=== PATIENT | male | born 1960 | race Caucasian/White ===

== ENCOUNTER 2020-09-03 07:28 | Emergency (ER) | payer OTHER ==
--- NOTE | 2020-09-03 07:34 | ED Physician Documentation ---
PD HPI HEENT - Stated complaint Stated Complaint: LT EAR PX - History obtained from History obtained from: Patient - History of Present Illness Timing - onset: How many weeks ago (2) Timing - duration: Weeks (2) Timing - details: Gradual onset, Still present (has had decreased hearing and pain left ear for 2 weeks. Seen in video by his son, who [facility]. Rx with Cefdinir and oral steroids and Debrox drops. No improvement and so Ciprodex otic drops added the past 4 days. Still not improved, so son directed him to come to ER (since no PMD) Location: Left ear Associated symptoms: No: Fever, Swollen nodes, Facial swelling, Headache Similar symptoms before: Has not had sx before Recently seen: Other (Telemedicine with his son who is MD out of state.) Review of Systems Constitutional: denies: Fever, Chills Ears: reports: Loss of hearing, Ear pain. denies: Drainage/discharge, Tinnitus/ringing Nose: denies: Congestion, Sinus pressure / pain Throat: denies: Sore throat GI: denies: Nausea, Vomiting Neurologic: denies: Altered mental status, Headache PD PAST MEDICAL HISTORY - Past Medical History Cardiovascular: None Respiratory: None Neuro: None - Past Surgical History Past Surgical History: Yes General: Bowel surgery - Present Medications Home Medications: Ambulatory Orders Medication Instructions Recorded Confirmed Cyclobenzaprine [Flexeril] 10 mg PO TID PRN #20 tablet 07/15/13 HYDROcod/ACETAM 5/325 [[place] 5/325] 1 - 2 ea PO Q6H #15 tablet 07/15/13 Hydrocodone/Acetaminophen 1 each PO Q6H PRN #12 tablet 09/03/20 [Hydrocodone-Acetamin 5-325 mg] Neomycin/Polymyx/Hc Otic Drops 4 drops LEFTEAR TID 7 Days #1 09/03/20 [Cortisporin Ear Susp] bottle Sulfamethox/Trimeth 800/160 1 each PO BID #10 tablet 09/03/20 [Bactrim Ds 800/160] - Allergies Allergies/Adverse Reactions: Allergies Allergy/AdvReac Type Severity Reaction Status Date / Time codeine [Codeine] Allergy Itching Verified 09/03/20 07:41 - Social History Does the pt smoke?: No Smoking Status: Never smoker Does the pt drink ETOH?: No Does the pt have substance abuse?: No - Immunizations Immunizations are current?: Yes - POLST Patient has POLST: No PD ED PE NORMAL - Vitals Vital signs reviewed: Yes - General General: Alert and oriented X 3, Well developed/nourished, Other (seems in pain from the ear. ) - HEENT HEENT: No: Ears normal (right normal. Left with some swelling, redness, exudate of the canal, with swelling of the medial tissue of the canal and around the TM with some inflammation/poor mobility of the TM but no fluid behind it. ) - Neck Neck: Supple, no meningeal sign, No adenopathy - Cardiac Cardiac: RRR, No murmur - Respiratory Respiratory: Clear bilaterally - Derm Derm: Normal color, Warm and dry, Other (no redness of the pinna nor any tenderness/redness in the mastoid area. ) - Neuro Neuro: Alert and oriented X 3, No motor deficit, Normal speech Results - Vitals Vitals: Vital Signs - 24 hr 09/03/20 09/03/20 07:38 08:20 Temperature 36.5 C Heart Rate 85 77 Respiratory 20 16 Rate Blood Pressure 156/82 H 123/77 O2 Saturation 100 100 Oxygen O2 Source Room air - Labs Labs: Microbiology 09/03/20 07:48 Ear Culture - Preliminary Ear - Left PD MEDICAL DECISION MAKING - ED course Complexity details: considered differential (still with swelling and discharge from ear canal with redness of the canal and around the TM, despite Ciprodex otic. Will change to cortisporin and add Bactrim, presuming staph. Does not seem fungal. ), d/w patient Departure - Departure Disposition: 01 Home, Self Care Clinical Impression: Cellulitis of left ear canal Otitis externa Qualifiers: Otitis externa type: other infective Chronicity: acute Laterality: left Qualified Code(s): H60.392 - Other infective otitis externa, left ear Condition: Stable Record reviewed to determine appropriate education?: Yes Instructions: ED Otitis Externa Follow-Up: RADHA GOODEN DO [Primary Care Provider] - Prescriptions: Sulfamethox/Trimeth 800/160 [Bactrim Ds 800/160] 1 each PO BID #10 tablet Neomycin/Polymyx/Hc Otic Drops [Cortisporin Ear Susp] 4 drops LEFTEAR TID 7 Days #1 bottle Hydrocodone/Acetaminophen [Hydrocodone-Acetamin 5-325 mg] 1 each PO Q6H PRN #12 tablet PRN Reason: Pain Comments: Would stop the Cipro eardrops since they do not seem to be working. Change to Cortisporin eardrops 3-4 times a day for the next 7 days. Also add Bactrim oral antibiotic twice daily for 5 days. Tylenol or ibuprofen if needed for pains and add hydrocodone if needed in the short-term for pain. Recheck if not improving well over the next several days and resolved by 3 to 5 days. We did do a culture of the ear canal and will that will result in 2 to 3 days and we will see if we need to modify the treatment based off of that. Discharge Date/Time: 09/03/20 08:29
[2020-09-03] MEDS ORDERED: IBUPROFEN 600 MG TABLET PO STA (07:55)
[2020-09-03] MEDS ORDERED: ACETAMINOPHEN 325 MG TABLET PO STA (07:55)
[2020-09-03] MEDS ORDERED: SULFAMETH/TRIMETH DS 800/160 MG TABLET PO STA (07:55)
[2020-09-03 08:27] VITALS: BP 123/77
== END 2020-09-03 08:29 | disposition home or self-care (01) ==
LOC: ED 07:28
DX: H60.12 Cellulitis of left external ear (principal); H60.392 Other infective otitis externa, left ear
CPT/HCPCS: 81599; 87070; 99283; 99284; A9270